=== PATIENT | female | born 1980 | race Two or more races ===

== ENCOUNTER 2018-11-15 16:31 | Emergency (ER) | payer OTHER ==
[~2018-11-15] VITALS: Ht 165.1 cm; Wt 65.8 kg
== END 2018-11-15 21:25 | disposition home or self-care (01) ==
LOC: ER 16:31
DX: J01.80 Other acute sinusitis (principal)

== ENCOUNTER 2024-09-24 03:19 | Emergency (ER) | payer OTHER ==
[~2024-09-24] VITALS: Ht 162.6 cm; Wt 77.1 kg
[2024-09-24] MEDS ORDERED: KETOROLAC TROMETHAMINE 60 MG VIAL IM STA (05:30)
[2024-09-24] MEDS ORDERED: KETOROLAC TROMETHAMINE 60 MG VIAL IM ONE (05:34)
[2024-09-24 05:39] LABS: URINE APPEARANCE Cloudy; URINE BILIRRUBIN Negative (NEGATIVE); URINE BLOOD Moderate; URINE COLOR Yellow; URINE GLUCOSE Negative (NEGATIVE); URINE KETONE Negative (NEGATIVE); URINE LEUKOCYTE Moderate; URINE NITRATE Negative; URINE UROBILINOGEN 0.2 E.U./dl
[2024-09-24 05:42] LABS: URINE BACTERIA 206.8 uL (0.0-1933); URINE RBC 102.6 uL (0.0-20.8); URINE WBC 1453.9 uL (0.0-23.2)
[2024-09-24 05:48] LABS: URINE CAST 0.88 uL (0.0-1.40); URINE PROTEIN 300 (NEGATIVE)
== END 2024-09-24 06:52 | disposition home or self-care (01) ==
LOC: ER 03:21
DX: R30.0 Dysuria (principal); N39.0 Urinary tract infection, site not specified; M54.9 Dorsalgia, unspecified

== ENCOUNTER 2024-10-12 14:47 | Emergency (ER) | payer OTHER ==
[~2024-10-12] VITALS: Ht 162.6 cm; Wt 72.6 kg
== END 2024-10-12 17:57 | disposition left against medical advice (07) ==
LOC: ER 14:49
DX: Z53.21 Procedure and treatment not carried out due to patient leaving prior to being seen by health care provider (principal)